=== PATIENT | male | born 1965 | race Caucasian/White ===

== ENCOUNTER 2022-02-21 15:20 | Outpatient (CLI) | payer OTHER, SELFPAY ==
--- NOTE | ~2022-02-21 | XR_ITS ---
EXAMINATION: XR thoracic spine 2V DATE: 02/21/2022 16:15 INDICATION: Thoracic spine pain TECHNIQUE: AP, lateral and lateral swimmer's views of the thoracic spine were obtained. COMPARISON: None. FINDINGS: Bone alignment is normal. There is no fracture. There is moderate loss of intervertebral di sc space height at multiple levels in the thoracic spine. Lower thoracic levocurvature is noted. The vertebral body heights are maintained. Small degenerative osteophytes project from the anterior endpl ates of multiple vertebral bodies. IMPRESSION: 1. Moderate thoracic spondylosis without acute findings. Reviewed, dictated and finalized at location F. [employer]
--- NOTE | ~2022-02-21 | XR_ITS ---
EXAMINATION:XR cervical spine 4-5V DATE: 02/21/2022 16:15 INDICATION: Neck pain TECHNIQUE: AP, lateral, bilateral oblique and odontoid views of the cervical spine are provided. COMPARISON: None FINDINGS: There are 2 mm of anterolisthesis of C4 on C5. The odontoid is intact. No fracture is ident ified. The vertebral body heights are normal. There is severe loss of intervertebral disc space heigh t at C5-6 and C6-7. There is moderate loss of intervertebral disc space height at C3-4. Prevertebral soft tissues are normal. There is multilevel severe facet and uncovertebral joint osteoarthritis. IMPRESSION: 1. Severe cervical spondylosis without acute findings. If there is high clinical suspicion for cervic al spine fracture, further evaluation with CT is recommended. Reviewed, dictated and finalized at location F. [employer] CHIEF IMPRESSION: 1. Severe cervical spondylosis without acute findings. If there is high clinica l suspicion for cervical spine fracture, further evaluation with CT is recommen ded.
== END 2022-02-21 15:21 ==
PROVIDERS: PCP Chiropractor; Visit Provider Chiropractor
DX: R20.2 Paresthesia of skin (principal); M47.894 Other spondylosis, thoracic region; M47.892 Other spondylosis, cervical region
CPT/HCPCS: 72050; 72070